=== PATIENT | male | born 1975 | race Caucasian/White ===

== ENCOUNTER 2017-05-20 11:31 | Emergency (ER) | payer BC ==
[2017-05-20 11:42] VITALS: TEMP 98.8
[2017-05-20] MEDS ORDERED: LET GEL TOPICAL 1 EA SYR TP ONE (11:48)
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
[2017-05-20 13:07] VITALS: BP 142/94; PULSE 65; RESP 16; O2SAT 96
== END 2017-05-20 13:01 | disposition home or self-care (01) ==
LOC: CED 11:31
DX: S42.035A Nondisplaced fracture of lateral end of left clavicle, initial encounter for closed fracture (principal); S80.812A Abrasion, left lower leg, initial encounter; I10 Essential (primary) hypertension; J45.909 Unspecified asthma, uncomplicated; V18.0XXA Pedal cycle driver injured in noncollision transport accident in nontraffic accident, initial encounter; Y92.410 Unspecified street and highway as the place of occurrence of the external cause; Y99.8 Other external cause status; Y93.89 Activity, other specified
CPT/HCPCS: 73030-PO; 73564-PO; A4565